=== PATIENT | female | born 1965 | race Caucasian/White ===

== ENCOUNTER → 2016-11-24 | Day surgery (SDC) | payer BC, OTHER ==
[~2016-11-24] MED LIST: ALPRAZolam 0.25 MG TAB ONE; BACITRACIN OINT 1 EACH PACKET TOPICAL ONE; LIDOCAINE 1% INJ 10MG/ML (20 ML MDV) ONE; SODIUM BICARB 4% 5 ML VIAL (0.48 MEQ/ML) ONE
--- NOTE | 2016-11-24 13:21 | USB ---
EXAMINATION TYPE: US biopsy breast VAD RT, MG diagnostic mammo RT wo CAD DATE OF EXAM: 11/24/2016 1:01 PM CLINICAL HISTORY: R92.8 Abn Mammogram. Prior outside abnormal mammogram and ultrasound TECHNIQUE: Ultrasound guided core biopsy of right breast with clip placement and follow-up diagnostic two-view mammogram. COMPARISON: Outside studies reviewed on outside PACS station. FINDINGS: The procedure of ultrasound guided core biopsy was explained to the patient. Benefits, alternatives, and risks were discussed. An informed consent was then obtained. The patient was placed in supine positioning for imaging and for the procedure. Preprocedure imaging redemonstrates 4 mm vague hypoechoic lesion with some posterior shadowing 9:00 position zone B/C of right breast. The overlying skin was prepped and draped in usual sterile fashion. Lidocaine buffered with bicarbonate was used as anesthetic into the skin and subcutaneous tissue up to area of concern in the right breast. A toya was made with surgical scalpel. Under ultrasound guidance, a 12-gauge vacuum assisted biopsy gun device was used to obtain 3 core samples. Following this, a biopsy clip was left in lesion. The patient tolerated the procedure well without any immediate complication. The patient was kept in the radiology department for short stay after the procedure and then discharged home in stable condition. Postprocedure mammogram shows successful clip the deployment, previously visualized nodularity is not definitively identified. Ill-defined density is felt to reflect predominantly product of anesthetic injection. No further biopsying with stereotactic guided attempt is felt necessary at this time. IMPRESSION: Successful, uncomplicated ultrasound guided core biopsy of area of concern in the right breast, full pathology results to follow. Intermediate index of suspicion noted at time of procedure. Pathology Results: Benign BREAST, RIGHT, ULTRASOUND GUIDED CORE BIOPSY: BENIGN BREAST PARENCHYMA DEMONSTRATING STROMAL FIBROSIS, CYST FORMATION AND FIBROADENOMATOUS HYPERPLASIA WITH PROMINENT BACKGROUND FIBROADIPOSE TISSUE. Recommendation Follow up ultrasound of the right breast in 6 months. DAVIS
== END ==
LOC: RADUSWWP 11:14
PROVIDERS: ATTEND Surgery
DX: N60.31 Fibrosclerosis of right breast (principal); N60.01 Solitary cyst of right breast; D24.1 Benign neoplasm of right breast; N62 Hypertrophy of breast
CPT/HCPCS: 88305; 19083; G0206; A4648; J2001

== ENCOUNTER → 2017-07-03 | Outpatient (CLI) | payer OTHER ==
--- NOTE | 2017-07-03 12:07 | XR ---
EXAMINATION TYPE: XR chest 2V DATE OF EXAM: 07/03/2017 COMPARISON: 10/09/2016 HISTORY: 51-year-old female with cough TECHNIQUE: Frontal and lateral views FINDINGS: The cardiomediastinal silhouette, aorta, and pulmonary vasculature are within normal limits. Some str nic atelectasis in the lower lungs. Otherwise, lungs and pleural spaces are clear. IMPRESSION: No acute cardiopulmonary process.
--- NOTE | 2017-07-03 12:59 | XR ---
EXAMINATION TYPE: XR wrist limited RT DATE OF EXAM: 07/03/2017 COMPARISON: NONE HISTORY: 51-year-old female with prior fracture 2 years ago with fall and reinjury 2 months ago. TECHNIQUE: 2 views FINDINGS: There is underlying degenerative change at the radiocarpal joint especially along the radial aspect o f the joint. Triscaphe joint degenerative changes also present. Apparent widening at the scapholunate interval. There is a large 1.1 cm corticated bone fragment at the radial styloid process. On these 2 views, the scaphoid is not well delineated. Additional 7 mm corticated bone fragment at the dorsal a spect of the wrist. IMPRESSION: 1. Limited 2 views. These views do not adequately delineate the scaphoid. There may be rotary subluxa tion of the scaphoid secondary to underlying scapholunate ligament tear. The possibility of a scaphoi d fracture is difficult to exclude on these 2 views. Consider additional oblique and navicular views. 2. 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 3. 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 4. Additional triscaphe joint OA.
--- NOTE | 2017-07-03 13:34 | CT ---
EXAMINATION TYPE: CT abdomen pelvis w con DATE OF EXAM: 07/03/2017 HISTORY: Patient complains of bilateral upper quadrant pain, bloating, nausea, vomiting, and diarrhea . CT DLP: 1068.3mGycm Automated Exposure Control for Dose Reduction was Utilized. CONTRAST: CT scan of the abdomen and pelvis is performed with IV Contrast, patient injected with 100 mL of Omni paque 300. COMPARISON: None. FINDINGS: LUNG BASES: No significant abnormality is appreciated. LIVER/GB: Cholecystectomy clips are noted. PANCREAS: No significant abnormality is seen. SPLEEN: No significant abnormality is seen. ADRENALS: No significant abnormality is seen. KIDNEYS: No significant abnormality is seen. BOWEL: The oral contrast reaches level of cecum. Evaluation of distal bowel is thus somewhat suboptim al due to lack of enteric contrast. There is no suspicious small or large bowel dilatation. The amoun t of fecal material is somewhat prominent in the right and proximal transverse colon. UTERUS/ADNEXA: Uterus is surgically absent. Scattered pelvic phleboliths are noted bilaterally. LYMPH NODES: No greater than 1cm abdominal or pelvic lymph nodes are appreciated. OSSEOUS STRUCTURES: There is exaggerated lumbar lordosis. There is slight grade 1 retrolisthesis of L 1 on L2, L2 on L3, and L3 and L4. There is postsurgical changes L4-L5 level with grade 1 anterolisthe sis L4 on L5. There is moderate disc space narrowing and spurring at L1-L2 level. There is additional mild to moderate multilevel anterior and lateral spurring in the visualized thoracic spine. Facet ar thropathy lower lumbar levels is noted. OTHER: No significant additional abnormality is seen. IMPRESSION: Perhaps mild proximal colonic fecal stasis. No bowel obstruction is seen. No significant acute finding is otherwise seen to account for patient's clinical symptoms.
== END | disposition home or self-care (01) ==
LOC: RADCTMAIN 10:30
PROVIDERS: ATTEND Internal Medicine
DX: K59.8 Other specified functional intestinal disorders (principal); M19.031 Primary osteoarthritis, right wrist; R05 Cough; R10.84 Generalized abdominal pain
CPT/HCPCS: 71020; 73100; 74177; Q9967

== ENCOUNTER → 2017-07-10 | Outpatient (CLI) | payer OTHER ==
--- NOTE | 2017-07-10 17:07 | MR ---
EXAMINATION TYPE: MR cspine/tspine wo con DATE OF EXAM: 07/10/2017 COMPARISON: NONE HISTORY: Neck/mid back pain, headaches, spasms, BUE weakness for several years CONTRAST: Performed utilizing 0 mL intravenous Gadavist gadolinium contrast. TECHNIQUE: Multiplanar multiecho imaging on a 3.0 Dian magnet is performed through the cervical spin e. FINDINGS: The craniovertebral junction is normal. Vertebral body alignment is straightened posteri or spurring appears to be present C3 C4 C5 and C6. C7-T1: No focal disc herniation or significant disc bulge is evident. No spinal canal stenosis or n eural foraminal stenosis is present. C6-7: There is a broad-based right paracentral disc herniation with moderate anterior thecal sac comp ression. Cord contact is not identified although there appears to be cord flattening on the right at this level. Moderate bilateral foraminal narrowing is present.. C5-6: Right paracentral disc bulge is present with moderate anterior thecal sac compression. This com es in close approximation with the spinal cord. Cord deformity is not identified. No spinal canal bhanu nosis present. Severe bilateral foraminal stenosis is present.. C4-5: Broad-based disc bulge is present. This is more focal centrally with moderate to severe anterio r thecal sac compression. There is an AP spinal canal stenosis at 0.6 cm. Cord compression is present . Some minimal cord signal increase is present on sagittal T2-weighted images greater on the right. S evere bilateral foraminal stenosis is present.. C3-4: Mild disc bulge is present with mild anterior thecal sac compression. No cord contact is eviden t. No spinal canal stenosis present. Moderate left foraminal narrowing is present.. C2-3: No focal disc herniation or significant disc bulge is evident. No spinal canal stenosis or luke ral foraminal stenosis is present. IMPRESSIONS: 1. Severe spinal canal stenosis C4-5 secondary to broad-based disc bulge. Small amount of endplate sp urring may contribute. This is contributing to an AP spinal canal stenosis of 0.6 cm causing cord com pression and there is some signal abnormality within the cord at this level. 2. Multilevel severe foraminal stenosis discussed above. 3. Right paracentral disc bulges C5-6 C6-7. Some cord deformity may be present at C6-7 although cord contact is not identified at the time of this examination. EXAMINATION TYPE: MR cspine/tspine wo con DATE OF EXAM: 07/10/2017 COMPARISON: NONE HISTORY: Neck/mid back pain, headaches, spasms, BUE weakness for several years CONTRAST: Performed utilizing 0 mL intravenous Gadavist gadolinium contrast. TECHNIQUE: Multiplanar, multiecho imaging on a 3.0 Dian magnet is performed through the thoracic spi ne. Spinal cord maintains normal signal through its visualized thoracic course. Vertebral body alignment is normal. Vertebral body heights are preserved. Disc heights are preserved. Disc desiccation is present throughout the thoracic spine. T4-5: Mild disc bulge has anterior thecal sac contact. No spinal cord deformity is evident. No contac t is evident. No stenosis is present T5-6: Left and right paracentral disc bulge is present with moderate anterior thecal sac compression . Some cord flattening may be present although no cord contact is evident. No spinal canal stenosis i s present. T6-7: Left and right paracentral disc bulge is present with moderate anterior thecal sac compression. Some cord flattening may be present although no cord contact is evident. No spinal canal stenosis is present. T7-8: Small right paracentral disc bulge has mild anterior thecal sac compression. No AP spinal canal stenosis or neural foraminal stenosis is present. T8-9: There is left paracentral endplate spurring with moderate anterior thecal sac compression. No c ord contact is evident. Spinal canal stenosis is not present. T11-12: Left paracentral disc bulge is present with moderate anterior thecal sac compression. This co mes in close approximation to the spinal cord. No cord contact or spinal canal stenosis is present. T12-L1: There is some mild right paracentral disc bulge with mild anterior thecal sac compression. No spinal canal stenosis or neural foraminal stenosis present. IMPRESSIONS: 1. Multilevel disc bulging most severe at T5-6 T6-7. Cord flattening may be present although cord con tact is not identified. No cord signal abnormality is evident.
== END | disposition home or self-care (01) ==
LOC: RADMRIMAIN 14:47
PROVIDERS: ATTEND Internal Medicine
DX: M54.2 Cervicalgia (principal); M54.6 Pain in thoracic spine
CPT/HCPCS: 72141; 72146

== ENCOUNTER → 2017-07-26 | Outpatient (CLI) | payer OTHER ==
--- NOTE | 2017-07-27 08:30 | MM ---
Reason for exam: follow-up at short interval from prior study. Last mammogram was performed 8 months ago. History: Patient is postmenopausal and is nulliparous. Family history of breast cancer in maternal aunt and breast cancer in maternal cousin. Benign US biopsy breast VAD RT of the right breast, November 24, 2016. Took estrogen for 1 month beginning at age 34. Physical Findings: Nurse Summary: multiple small soft movable lumps bilaterally (nurse rm). MG Diagnostic Mammo w CAD CICI Bilateral CC and MLO view(s) were taken. Prior study comparison: November 24, 2016, right breast MG diagnostic mammo RT wo CAD. There are scattered fibroglandular densities. 9 o'clock nodularity in the right breast with adjacent microclip. The nodularity is now smaller. 2 palpable markers on either sides. These results were verbally communicated with the patient and result sheet given to the patient on 07/26/17. ASSESSMENT: Incomplete: need additional imaging evaluation, BI-RAD 0 RECOMMENDATION: Ultrasound of both breasts. (for palpables)
--- NOTE | 2017-07-27 08:34 | USB ---
Reason for exam: additional evaluation requested from abnormal screening. History: Patient is postmenopausal and is nulliparous. Family history of breast cancer in maternal aunt and breast cancer in maternal cousin. Benign US biopsy breast VAD RT of the right breast, November 24, 2016. Took estrogen for 1 month beginning at age 34. US Breast Limited BILAT Right breast ultrasound demonstrates a 0.7 x 0.6 x 0.2cm oval, hypoechoic lesion at 5 o'clock probably incidentally seen here, probably an echoic duct or flattened cyst and a 0.4 x 0.6 x 0.3cm oval, hypoechoic lesion at 9 o'clock versus 4 x 5 x 3mm previously. No solid or cystic lesion see at 8 o'clock BB. Left breast ultrasound demonstrates a 0.1 x 0.1cm calcification at 10 o'clock, questionable clinical significance. These results were verbally communicated with the patient and result sheet given to the patient on 07/26/17. ASSESSMENT: Benign, BI-RAD 2 RECOMMENDATION: Routine screening mammogram of both breasts in 1 year. Manage on a clinical basis with regard to any suspicious palpable abnormalities.
== END | disposition home or self-care (01) ==
LOC: RADMAMWWP 13:47
PROVIDERS: ATTEND Internal Medicine
DX: R92.8 Other abnormal and inconclusive findings on diagnostic imaging of breast (principal)
CPT/HCPCS: 76642; G0204

== ENCOUNTER → 2017-10-03 | Outpatient (CLI) | payer OTHER | END | disposition home or self-care (01) | LOC: RADMAMWWP 15:32 | PROVIDERS: ATTEND Surgery | DX: Z53.9 Procedure and treatment not carried out, unspecified reason (principal) ==